=== PATIENT | male | born 1990 | race Caucasian/White ===

== ENCOUNTER 2021-10-28 21:42 | Emergency (ER) | payer OTHER ==
[2021-10-28] MEDS ORDERED: Alum Hydrox/Mag Hydrox/Simeth 30 ML, Lidocaine 2% 15 ML PO ONE ×2 (23:07)
== END 2021-10-29 01:01 | disposition home or self-care (01) ==
LOC: JD.ED 21:42
DX: K30 Functional dyspepsia (principal); Z79.01 Long term (current) use of anticoagulants
CPT/HCPCS: 36415; 80053; 85025; 85610; 99284; A9270